=== PATIENT | female | born 1995 | race Caucasian/White ===

== ENCOUNTER 2016-06-16 10:26 | Emergency (ER) | payer MEDICAID ==
[2016-06-16 10:50] VITALS: BP 126/78; PULSE 90; RESP 16; TEMP 99.5; O2SAT 93
--- NOTE | 2016-06-16 10:52 | UCPHY ---
H & P Patient Type: Established HPI/ROS: CHIEF COMPLAINT: Sore throat, cough. HISTORY OF PRESENT ILLNESS: This is a 20-year-old female presenting with sore throat and left sided, anterior neck lymphadenopathy for the past 3 or 4 days. She does admit having worsening nasal congestion for the week prior to the sore throat, in the background setting of a chronic sense of rhinorrhea from chronic allergies which is not particularly worse at any particular time here. She admits to a mildly productive cough with yellow sputum and this makes her LANGE feel worse headache. She denies fever, vomiting, diarrhea, abdominal pain. She is afebrile on presentation. She recently finished a 10 day course of Bactrim for a facial infection, under left eye though did not require I&D. She is between jobs thus will not need a note She does not smoke No known specific exposure. REVIEW OF SYSTEMS: Constitutional: No fever, no chills - the temperature here is 37.5 Eyes: No eye discharge. ENT: Moderate sore throat though no change in hearing or balance Cardiovascular: No chest pain, no palpitations. Respiratory: Mild cough without wheezing or pain with breathing Musculoskeletal: No back pain. Skin: No rashes. Neurological: Moderate diffuse constant steady slow onset headache frontal in nature 10 point ROS otherwise negative Past Medical/Surgical History: Chronic rhinorrhea from allergies. No asthma Social History: Nonsmoker. Smoking Status: Never smoked Physical Exam: General Appearance: Alert, no distress. Afebrile. Normal phonation. No respiratory distress. Eyes: Pupils equal and round no pallor or injection. No icterus ENT, Mouth: Mucous membranes moist. Pharynx mildly erythematous and without exudate. Moderate left anterior and mild posterior triangle adenopathy. TM Clear - normal hearing. Neck: No adenopathy. Supple. No JVD. Trachea in midline. Respiratory: There are no retractions, lungs are clear to auscultation. Cardiovascular: Regular rate and rhythm. Abdomen: No splenomegaly, spleen is not palpable. Soft and nontender, no masses , bowel sounds normal. Neurological: Ox3. No motor weakness. Sensation intact. Gait nl. Skin: Warm and dry, no rashes. Psychiatric: Normal affect, there is no agitation Constitutional: Initial Vital Signs Temperature (C) 37.5 C 06/16/16 10:44 Heart Rate 90 06/16/16 10:44 Respiratory Rate 16 06/16/16 10:44 Blood Pressure 126/78 H 06/16/16 10:44 O2 Sat (%) 93 06/16/16 10:44 O2 Delivery Mode Room Air Allergies/Adverse Reactions: Penicillins Allergy (Unknown, Verified 06/16/16 10:50) ketorolac tromethamine [From Toradol] Allergy (Verified 06/16/16 10:50) Home Medications: Medication Instructions Recorded Miscellaneous Medical Supply [NO 1 ea MISC AD 04/15/12 HOME MEDS] Azithromycin [Zithromax] 250 mg PO DAILY #6 tab 06/16/16 Medical Decision Making ED Course/Re-evaluation: Her initial strep testing is negative fact negative. Certainly she is at risk due to her age bracket and the adenopathy. However there is no the characteristic findings as typically was seen such as soft palate petechiae. The anterior triangle adenopathy suggest this might be mono. [place] test is in progress at the time of her discharge, she will call us back. No of note, is that she does not participate in any particular sports to put her risk for splenic rupture, fortunately. Also of note, is that her spleen is not palpable at this time. She is to call back for results. As the cough, certainly with the headache and general feeling of unwell in mild cough this could be influenza like illness. However, has been going on long enough that she is well out of the reach of Tamiflu, symptomatology is mild that Tamiflu is not indicated, and should run its course as well. 1200 - indeed, the mono test was negative. This week all to the patient by the staff. No further treatment necessary. Differential Diagnosis: See above. - Data Points Laboratory Results: 06/16/16 06/16/16 06/16/16 Unknown 11:39 10:40 Monoscreen NEGATIVE (NEGATIVE) Group A Strep Screen NEGATIVE (NEGATIVE) Group A Strep DNA Pending Departure - Departure Disposition: Home, Routine, Self-Care Clinical Impression: Sore throat, Cough Condition: Good Instructions: Pharyngitis (ED), Acute Cough (ED) Additional Instructions: Call the Urgent Care back in 3 hours for results of your [place] test if you have not already been contacted. [phone] is our direct line. If the mono test is positive will have lengthy discussion at the time regarding the issues with respect to that. If in a weeks time to have a lingering mildly productive cough issue now, then start the Zithromax. Certainly at that time if getting worse than you may need to come back, however, I expect this illness to run its course and for you to be better by then. Return to the Urgent Care or emergency department if you experience any serious worsening of condition. Referrals: [place],. [Primary Care Provider] - As per Instructions Prescriptions: Azithromycin [Zithromax] 250 mg PO DAILY #6 tab - PQRS PQRS Measurement: Not applicable Report Scribed for: Brandon Carrizales Report Scribed by: Dash Buck Date of Report: 06/16/16 Time of Report: 11:11
== END 2016-06-16 12:03 | disposition home or self-care (01) ==
LOC: CED 10:26
DX: J02.9 Acute pharyngitis, unspecified (principal); R05 Cough; R59.0 Localized enlarged lymph nodes; R09.81 Nasal congestion
CPT/HCPCS: 86308-PO; 87880-PO; 99214-PO; G0463-PO